=== PATIENT | male | born 1950 | race Caucasian/White ===

== ENCOUNTER 2021-01-15 12:08 | Inpatient (IN) ==
[2021-01-15] MEDS ORDERED: Furosemide 40 MG/4 ML VIAL IVP ONE (12:43)
[2021-01-15 13:34] LABS: Basophils % 0.5 %; Eosinophils # 0.1 K/mcL (0.0-0.6); Eosinophils % 2.3 %; Hematocrit 27.5 % (37.5-50.1); Hemoglobin 9.6 g/dL (12.9-16.9); Immature Granulocytes % 0.2 % (0-4); Lymphocytes % 17.3 %; Mean Corpuscular HGB Conc 34.9 g/dL (31.6-35.5); Mean Corpuscular Hemoglobin 31.4 pg (28.0-33.3); Mean Corpuscular Volume 89.9 fL (83.0-100.0); Monocytes # 0.3 K/mcL (0.0-1.3); Monocytes % 4.7 %; Neutrophils # 4.3 K/mcL (1.6-8.9); Red Blood Count 3.06 M/mcL (4.19-5.50); Red Cell Distribution Width 14.3 % (11.5-14.5); White Blood Count 5.7 K/mcL (4.3-11.1)
[2021-01-15 13:35] LABS: Platelet Count 94 K/mcL (140-400)
[2021-01-15 13:41] LABS: Prothrombin Time 11.8 Seconds (9.4-12.1)
[2021-01-15 13:43] LABS: Activated Partial Thrombo Time 37.3 Seconds (26.0-36.0)
[2021-01-15 14:29] LABS: Albumin 2.8 g/dL (3.5-5.7); Albumin/Globulin Ratio 1.3 (1.1-2.2); Bilirubin,Direct 0.1 mg/dL (0.0-0.2); Bilirubin,Indirect 0.5 mg/dL (0.0-1.0); Bilirubin,Total 0.6 mg/dL (0.3-1.0); Calcium 7.9 mg/dL (8.6-10.3); Globulin 2.1 g/dL (2.4-3.5); Potassium 3.2 mEq/L (3.5-5.1); Total Protein 4.9 g/dL (6.4-8.9); Troponin I 0.03 ng/mL (< 0.04)
[2021-01-15] MEDS ORDERED: Perflutren Lipid Microsphere 1.3 ML in 0.9 % Sodium Chloride 8.7 ML IVP PRN (15:08)
[2021-01-15] MEDS ORDERED: Naloxone 0.4 MG/ML INJ IVP PRN (15:13)
[2021-01-15] MEDS ORDERED: Melatonin 3 MG TABLET PO PRN (15:13)
[2021-01-15] MEDS ORDERED: Ondansetron 4 MG/2 ML VIAL IVP PRN (15:13)
[2021-01-15] MEDS ORDERED: MOM Conc 10 ML UD.LIQ PO PRN (15:13)
[2021-01-15] MEDS ORDERED: *HR* LORazepam 2 MG/ML VIAL IVP ONE (16:52)
[2021-01-15] MEDS ORDERED: Dextrose Gel 15 GM/37.5 ML TUBE PO PRN ×2 (17:15)
[2021-01-15] MEDS ORDERED: *HR* Dextrose 50 % in Water (Vial) 50 ML VIAL IVP PRN (17:15)
[2021-01-15] MEDS ORDERED: D5% in Water 1,000 ML IVC PRN (17:15)
[2021-01-15] MEDS ORDERED: *HR* Labetalol 20 MG/4 ML SYRINGE IVP ONE (20:42)
[2021-01-15] MEDS: Acetaminophen 325 MG TABLET PO PRN (20:48)
[2021-01-15] MEDS: Insulin LISPRO 300 UNITS/3 ML VIAL SUBQ SCH (22:01)
[2021-01-15] MEDS: *HR* Buprenorphine HCl 2 MG SUBLINGUAL TABLET SL SCH (23:23)
[2021-01-15 23:39] LABS: Bilirubin,Urine Negative (Negative); Blood,Urine Moderate (Negative); Clarity,Urine Clear (Clear); Color,Urine Light-Yellow (Yellow); Glucose,Urine (UA) 200 mg/dL (Normal); Hyaline Casts,Urine Few per lpf (None Seen); Ketones,Urine Negative (Negative); Leukocyte Esterase,Urine Negative (Negative); Mucus,Urine Few per lpf (None-Few); Nitrite,Urine Negative (Negative); Protein,Urine >=300 mg/dL (Neg-Trace); Specific Gravity,Urine 1.014 (1.010-1.025); Urobilinogen,Urine Normal (Normal); WBC,Urine 0-3 per hpf (0-3)
[2021-01-16 01:36] LABS: Basophils % 0.6 %; Eosinophils # 0.1 K/mcL (0.0-0.6); Hematocrit 25.9 % (37.5-50.1); Hemoglobin 9.4 g/dL (12.9-16.9); Immature Granulocytes % 0.3 % (0-4); Lymphocytes # 1.2 K/mcL (0.6-4.6); Lymphocytes % 17.9 %; Mean Corpuscular HGB Conc 36.3 g/dL (31.6-35.5); Mean Corpuscular Hemoglobin 31.9 pg (28.0-33.3); Mean Corpuscular Volume 87.8 fL (83.0-100.0); Mean Platelet Volume 10.8 fL (9.4-12.4); Monocytes # 0.3 K/mcL (0.0-1.3); Monocytes % 4.6 %; Platelet Count 103 K/mcL (140-400); Red Blood Count 2.95 M/mcL (4.19-5.50); Red Cell Distribution Width 14.1 % (11.5-14.5); Segmented Neutrophils % 74.6 %; White Blood Count 6.5 K/mcL (4.3-11.1)
[2021-01-16 01:37] LABS: Neutrophils # 4.9 K/mcL (1.6-8.9)
[2021-01-16 01:55] LABS: Albumin 2.6 g/dL (3.5-5.7); Albumin/Globulin Ratio 1.2 (1.1-2.2); Bilirubin,Direct 0.2 mg/dL (0.0-0.2); Bilirubin,Indirect 0.6 mg/dL (0.0-1.0); Bilirubin,Total 0.8 mg/dL (0.3-1.0); Calcium 7.7 mg/dL (8.6-10.3); Globulin 2.2 g/dL (2.4-3.5); Magnesium 1.7 mg/dL (1.6-2.6); Potassium 3.2 mEq/L (3.5-5.1); Total Protein 4.8 g/dL (6.4-8.9)
[2021-01-16] MEDS: Insulin LISPRO 300 UNITS/3 ML VIAL SUBQ SCH ×4 (08:35→20:47)
[2021-01-16] MEDS: *HR* Buprenorphine HCl 2 MG SUBLINGUAL TABLET SL SCH (09:38)
[2021-01-16] MEDS ORDERED: amLODIPine 5 MG TABLET PO SCH (11:30)
[2021-01-16 13:26] LABS: Glucose,Pleural Fluid 189 mg/dL (No Ref Range); LDH,Pleural Fluid 65 Units/L (No Ref Range); Total Protein,Pleural Fluid < 2.0 g/dL
[2021-01-16 13:35] LABS: RBC,Pleural Fluid 52000 RBC/mcL
[2021-01-16 13:52] LABS: Appearance of Pleural Fl Bloody (Clear)
[2021-01-16 14:07] LABS: Basophils,Pleural Fluid 0 %; Monocytes,Pleural Fluid 0 %
[2021-01-16] MEDS ORDERED: amLODIPine 5 MG TABLET PO ONE (14:44)
[2021-01-16] MEDS ORDERED: *HR* OxyCODONE Immed Rel 5 MG TABLET PO ONE (14:50)
[2021-01-16] MEDS: Furosemide 20 MG/2 ML VIAL IVP SCH (15:44)
[2021-01-16 18:19] LABS: Bilirubin,Urine Negative (Negative); Blood,Urine Moderate (Negative); Clarity,Urine Clear (Clear); Color,Urine Light-Yellow (Yellow); Glucose,Urine (UA) 70 mg/dL (Normal); Granular Casts,Urine Few per lpf (None Seen); Hyaline Casts,Urine Few per lpf (None Seen); Ketones,Urine Negative (Negative); Leukocyte Esterase,Urine Negative (Negative); Mucus,Urine Few per lpf (None-Few); Nitrite,Urine Negative (Negative); PH,Urine 6.5 pH Units (5.0-8.0); Protein,Urine >=300 mg/dL (Neg-Trace); RBC,Urine 0-3 per hpf (0-3); Specific Gravity,Urine 1.013 (1.010-1.025); Urobilinogen,Urine Normal (Normal); WBC,Urine 0-3 per hpf (0-3)
[2021-01-16 18:36] LABS: Creatinine,Urine 34 mg/dL; Protein/Creatinine Ratio,Urine 4.18 mg/mg (0.00-0.20); Sodium, Urine < 10.0 mEq/L
[2021-01-16 20:37] LABS: Hemoglobin 8.8 g/dL (12.9-16.9); Mean Corpuscular HGB Conc 35.2 g/dL (31.6-35.5); Mean Corpuscular Hemoglobin 31.3 pg (28.0-33.3); Mean Platelet Volume 10.1 fL (9.4-12.4); Platelet Count 111 K/mcL (140-400); Red Blood Count 2.81 M/mcL (4.19-5.50); Red Cell Distribution Width 14.3 % (11.5-14.5); White Blood Count 7.1 K/mcL (4.3-11.1)
[2021-01-17 01:47] LABS: Basophils % 0.4 %; Eosinophils # 0.2 K/mcL (0.0-0.6); Eosinophils % 2.9 %; Hematocrit 23.9 % (37.5-50.1); Hemoglobin 8.3 g/dL (12.9-16.9); Immature Granulocytes % 0.3 % (0-4); Lymphocytes # 1.4 K/mcL (0.6-4.6); Lymphocytes % 19.9 %; Mean Corpuscular HGB Conc 34.7 g/dL (31.6-35.5); Mean Corpuscular Hemoglobin 30.7 pg (28.0-33.3); Mean Corpuscular Volume 88.5 fL (83.0-100.0); Mean Platelet Volume 11.3 fL (9.4-12.4); Monocytes # 0.4 K/mcL (0.0-1.3); Monocytes % 5.4 %; Neutrophils # 4.8 K/mcL (1.6-8.9); Platelet Count 114 K/mcL (140-400); Red Cell Distribution Width 14.2 % (11.5-14.5); Segmented Neutrophils % 71.1 %; White Blood Count 6.8 K/mcL (4.3-11.1)
[2021-01-17 02:11] LABS: Complement C3 97 mg/dL (87-200)
[2021-01-17 02:14] LABS: Calcium 7.6 mg/dL (8.6-10.3); Magnesium 1.7 mg/dL (1.6-2.6); Potassium 3.4 mEq/L (3.5-5.1); Uric Acid 6.2 mg/dL (2.3-7.6)
[2021-01-17 02:20] LABS: Thyroid Stimulating Hormone 2.69 mcIU/mL (0.340-5.600)
[2021-01-17 03:04] LABS: Hepatitis B Surface Antigen Nonreactive (Nonreactive)
[2021-01-17 03:33] LABS: Hepatitis A Antibody IgM Nonreactive (Nonreactive); Hepatitis B Core IgM Nonreactive (Nonreactive)
[2021-01-17 05:14] LABS: Hepatitis C Virus Antibody Reactive (Nonreactive)
[2021-01-17] MEDS: Acetaminophen 325 MG TABLET PO PRN (06:34)
[2021-01-17] MEDS: Furosemide 20 MG/2 ML VIAL IVP SCH (08:05)
[2021-01-17] MEDS: amLODIPine 5 MG TABLET PO SCH (08:06)
[2021-01-17] MEDS: *HR* Buprenorphine HCl 2 MG SUBLINGUAL TABLET SL SCH (08:06)
[2021-01-17] MEDS: Insulin LISPRO 300 UNITS/3 ML VIAL SUBQ SCH ×4 (08:10→22:46)
[2021-01-17] MEDS ORDERED: carvediloL 6.25 MG TABLET PO SCH (09:00)
[2021-01-17] MEDS ORDERED: aMILoride 5 MG TABLET PO SCH (16:30)
[2021-01-17] MEDS: aMILoride 5 MG TABLET PO SCH ×2 (17:21→20:17)
[2021-01-17] MEDS ORDERED: DiphenhydraMINE CREAM 28.4 GM TUBE TP PRN (20:33)
[2021-01-18 01:22] LABS: Basophils % 0.3 %; Eosinophils # 0.2 K/mcL (0.0-0.6); Eosinophils % 2.6 %; Hematocrit 23.1 % (37.5-50.1); Hemoglobin 8.1 g/dL (12.9-16.9); Immature Granulocytes % 0.3 % (0-4); Lymphocytes # 1.4 K/mcL (0.6-4.6); Mean Corpuscular HGB Conc 35.1 g/dL (31.6-35.5); Mean Corpuscular Hemoglobin 30.8 pg (28.0-33.3); Mean Corpuscular Volume 87.8 fL (83.0-100.0); Mean Platelet Volume 10.3 fL (9.4-12.4); Monocytes # 0.4 K/mcL (0.0-1.3); Monocytes % 5.7 %; Neutrophils # 4.5 K/mcL (1.6-8.9); Platelet Count 114 K/mcL (140-400); Red Blood Count 2.63 M/mcL (4.19-5.50); Red Cell Distribution Width 13.9 % (11.5-14.5); Segmented Neutrophils % 69.1 %; White Blood Count 6.5 K/mcL (4.3-11.1)
[2021-01-18 01:41] LABS: Calcium 7.4 mg/dL (8.6-10.3); Potassium 3.4 mEq/L (3.5-5.1)
[2021-01-18] MEDS: aMILoride 5 MG TABLET PO SCH ×2 (07:31→20:59)
[2021-01-18] MEDS: amLODIPine 5 MG TABLET PO SCH (07:32)
[2021-01-18] MEDS: Insulin LISPRO 300 UNITS/3 ML VIAL SUBQ SCH ×4 (07:32→21:00)
[2021-01-18] MEDS ORDERED: *HR* Buprenorphine HCl 2 MG SUBLINGUAL TABLET SL SCH (09:00)
[2021-01-18] MEDS ORDERED: niCARdipine 20 MG/200 ML MLS IVC SCH (14:15)
[2021-01-18] MEDS: niCARdipine 20 MG/200 ML MLS IVC SCH ×2 (19:24→23:18)
[2021-01-18] MEDS ORDERED: Insulin DETEMIR 100 UNIT/ML X5UNITS SUBQ SCH (21:00)
[2021-01-19 01:10] LABS: Lambda Qnt Free Light Chains 28.15 mg/L (5.71-26.30)
[2021-01-19 02:40] LABS: Basophils % 0.5 %; Eosinophils # 0.2 K/mcL (0.0-0.6); Eosinophils % 3.3 %; Hematocrit 26.4 % (37.5-50.1); Hemoglobin 9.1 g/dL (12.9-16.9); Immature Granulocytes % 0.3 % (0-4); Lymphocytes # 1.5 K/mcL (0.6-4.6); Lymphocytes % 22.3 %; Mean Corpuscular HGB Conc 34.5 g/dL (31.6-35.5); Mean Corpuscular Hemoglobin 30.6 pg (28.0-33.3); Mean Corpuscular Volume 88.9 fL (83.0-100.0); Mean Platelet Volume 10.3 fL (9.4-12.4); Monocytes # 0.4 K/mcL (0.0-1.3); Monocytes % 5.7 %; Neutrophils # 4.5 K/mcL (1.6-8.9); Platelet Count 117 K/mcL (140-400); Red Blood Count 2.97 M/mcL (4.19-5.50); Red Cell Distribution Width 13.6 % (11.5-14.5); Segmented Neutrophils % 67.9 %; White Blood Count 6.7 K/mcL (4.3-11.1)
[2021-01-19] MEDS: niCARdipine 20 MG/200 ML MLS IVC SCH ×6 (02:50→23:20)
[2021-01-19 02:59] LABS: Calcium 7.7 mg/dL (8.6-10.3); Potassium 3.6 mEq/L (3.5-5.1)
[2021-01-19 06:55] LABS: Kappa Qnt Free Light Chains 54.59 mg/L (3.30-19.40)
[2021-01-19 07:05] LABS: ANA IgG by ELISA NONE DETECTED (None Detected)
[2021-01-19] MEDS: aMILoride 5 MG TABLET PO SCH (08:23)
[2021-01-19] MEDS: Insulin LISPRO 300 UNITS/3 ML VIAL SUBQ SCH ×4 (08:26→20:03)
[2021-01-19 10:05] LABS: Serine Protease-3 Antibody 0 AU/mL (0-19)
[2021-01-19] MEDS: NIFEdipine XL (24 HR) 30 MG TAB.ER.24 PO SCH (11:01)
[2021-01-19] MEDS: Insulin DETEMIR 100 UNIT/ML X5UNITS SUBQ SCH (12:46)
[2021-01-19] MEDS ORDERED: *HR* LORazepam 2 MG/ML VIAL IVP ONE (21:34)
[2021-01-19] MEDS ORDERED: QUEtiapine Fumarate 25 MG TABLET PO ONE (21:34)
[2021-01-20 02:09] LABS: Hematocrit 23.5 % (37.5-50.1); Hemoglobin 8.4 g/dL (12.9-16.9); Mean Corpuscular HGB Conc 35.7 g/dL (31.6-35.5); Mean Corpuscular Hemoglobin 31.7 pg (28.0-33.3); Mean Corpuscular Volume 88.7 fL (83.0-100.0); Mean Platelet Volume 10.5 fL (9.4-12.4); Platelet Count 118 K/mcL (140-400); Red Blood Count 2.65 M/mcL (4.19-5.50); Red Cell Distribution Width 13.8 % (11.5-14.5); White Blood Count 6.2 K/mcL (4.3-11.1)
[2021-01-20 02:29] LABS: Calcium 7.7 mg/dL (8.6-10.3); Potassium 3.7 mEq/L (3.5-5.1)
[2021-01-20] MEDS: niCARdipine 20 MG/200 ML MLS IVC SCH ×3 (04:28→10:24)
[2021-01-20] MEDS: NIFEdipine XL (24 HR) 30 MG TAB.ER.24 PO SCH (07:17)
[2021-01-20] MEDS: Insulin LISPRO 300 UNITS/3 ML VIAL SUBQ SCH ×4 (07:30→20:28)
[2021-01-20] MEDS: Insulin DETEMIR 100 UNIT/ML X5UNITS SUBQ SCH (07:30)
[2021-01-20 12:06] LABS: Immunoglobulin A 113 mg/dL (68-408); Immunoglobulin G 443 mg/dL (768-1632); Immunoglobulin M 206 mg/dL (35-263)
[2021-01-20 14:46] LABS: Beta Globulin (PEP) 0.51 g/dL (0.48-1.10)
[2021-01-21 00:57] LABS: Hemoglobin 9.3 g/dL (12.9-16.9); Mean Corpuscular HGB Conc 35.8 g/dL (31.6-35.5); Mean Corpuscular Hemoglobin 31.8 pg (28.0-33.3); Mean Platelet Volume 10.8 fL (9.4-12.4); Platelet Count 138 K/mcL (140-400); Red Blood Count 2.92 M/mcL (4.19-5.50); White Blood Count 8.2 K/mcL (4.3-11.1)
[2021-01-21 01:17] LABS: Potassium 3.9 mEq/L (3.5-5.1)
[2021-01-21] MEDS: Insulin LISPRO 300 UNITS/3 ML VIAL SUBQ SCH ×4 (08:00→21:10)
[2021-01-21] MEDS: Insulin DETEMIR 100 UNIT/ML X5UNITS SUBQ SCH (08:05)
[2021-01-21] MEDS: NIFEdipine XL (24 HR) 60 MG TAB.ER.24 PO SCH (08:06)
[2021-01-21] MEDS: carvediloL 6.25 MG TABLET PO SCH ×2 (08:06→16:46)
[2021-01-21 09:56] LABS: IFE Reflexed IFE Done
[2021-01-21] MEDS ORDERED: 0.9 % Sodium Chloride 1,000 ML IVC SCH (14:45)
[2021-01-21] MEDS: Acetaminophen 325 MG TABLET PO PRN (23:57)
[2021-01-22 02:15] LABS: Hematocrit 28.2 % (37.5-50.1); Hemoglobin 9.7 g/dL (12.9-16.9); Mean Corpuscular HGB Conc 34.4 g/dL (31.6-35.5); Mean Corpuscular Hemoglobin 31.4 pg (28.0-33.3); Mean Corpuscular Volume 91.3 fL (83.0-100.0); Mean Platelet Volume 10.9 fL (9.4-12.4); Platelet Count 148 K/mcL (140-400); Red Blood Count 3.09 M/mcL (4.19-5.50); Red Cell Distribution Width 13.7 % (11.5-14.5)
[2021-01-22 02:35] LABS: Calcium 7.9 mg/dL (8.6-10.3); Potassium 3.8 mEq/L (3.5-5.1)
[2021-01-22 08:13] VITALS: BP 205/107; PULSE 98; TEMP 98; O2SAT 100
[2021-01-22] MEDS: carvediloL 6.25 MG TABLET PO SCH (08:14)
[2021-01-22] MEDS: NIFEdipine XL (24 HR) 60 MG TAB.ER.24 PO SCH (08:14)
[2021-01-22] MEDS: Insulin DETEMIR 100 UNIT/ML X5UNITS SUBQ SCH (08:14)
[2021-01-22] MEDS: Insulin LISPRO 300 UNITS/3 ML VIAL SUBQ SCH (08:14)
[2021-01-22] MEDS ORDERED: 0.9 % Sodium Chloride 1,000 ML IVC SCH (09:15)
[2021-01-22 10:13] LABS: HCV Quant Interpretation DETECTED (Not Detected); HCV Quant Log 5.59 log IU/mL
[2021-01-25 08:34] LABS: HCV Genotype by Sequencing 1A OR 1B
[2021-01-26 05:46] LABS: Urine Collection Volume RANDOM mL
== END 2021-01-22 13:16 | disposition left against medical advice (07) | DRG 280 ==
LOC: EMEROOARM 12:08 → 2NENU 12:08 → SUATTDRO 15:03 → 2NENU 16:29 → 2NNU 01-16 17:47 → SUATTDRO 01-18 13:01 → 2ANU 01-20 08:29
PROVIDERS: ADMIT Internal Medicine; ATTEND Internal Medicine

== ENCOUNTER 2021-03-22 13:12 | Inpatient (IN) ==
[~2021-03-22 13:12] MED LIST: cefTRIAXone 1,000 MG in Water for inj. (sterile) 10 ML IVP SCH
[2021-03-22 14:11] LABS: Basophils % 0.3 %; Eosinophils # 0.1 K/mcL (0.0-0.6); Hematocrit 31.8 % (37.5-50.1); Immature Granulocytes % 0.7 % (0-4); Lymphocytes # 1.4 K/mcL (0.6-4.6); Lymphocytes % 13.2 %; Mean Corpuscular HGB Conc 34.6 g/dL (31.6-35.5); Mean Corpuscular Hemoglobin 31.5 pg (28.0-33.3); Mean Corpuscular Volume 91.1 fL (83.0-100.0); Mean Platelet Volume 11.3 fL (9.4-12.4); Monocytes # 0.4 K/mcL (0.0-1.3); Monocytes % 3.4 %; Neutrophils # 8.5 K/mcL (1.6-8.9); Platelet Count 130 K/mcL (140-400); Red Blood Count 3.49 M/mcL (4.19-5.50); Red Cell Distribution Width 13.5 % (11.5-14.5); Segmented Neutrophils % 81.4 %; White Blood Count 10.4 K/mcL (4.3-11.1)
[2021-03-22 14:36] LABS: Albumin 3.6 g/dL (3.5-5.7); Albumin/Globulin Ratio 1.3 (1.1-2.2); Bilirubin,Direct 0.2 mg/dL (0.0-0.2); Bilirubin,Indirect 0.5 mg/dL (0.0-1.0); Bilirubin,Total 0.7 mg/dL (0.3-1.0); Calcium 8.8 mg/dL (8.6-10.3); Globulin 2.7 g/dL (2.4-3.5); Potassium 3.9 mEq/L (3.5-5.1); Total Protein 6.3 g/dL (6.4-8.9)
[2021-03-22] MEDS ORDERED: 0.9 % Sodium Chloride 1,000 ML IV ONE (14:48)
[2021-03-22] MEDS ORDERED: Isovue-370 500 ML BOTTLE IVP ONE (16:14)
[2021-03-22 17:00] LABS: Bilirubin,Urine Negative (Negative); Blood,Urine Moderate (Negative); Clarity,Urine Clear (Clear); Color,Urine Light-Yellow (Yellow); Glucose,Urine (UA) 500 mg/dL (Normal); Hyaline Casts,Urine Few per lpf (None Seen); Ketones,Urine Negative (Negative); Leukocyte Esterase,Urine Negative (Negative); Nitrite,Urine Negative (Negative); PH,Urine 6.5 pH Units (5.0-8.0); Protein,Urine >=600 mg/dL (Neg-Trace); RBC,Urine 0-3 per hpf (0-3); Specific Gravity,Urine 1.017 (1.010-1.025); Urobilinogen,Urine Normal (Normal); WBC,Urine 0-3 per hpf (0-3)
[2021-03-22] MEDS ORDERED: Pantoprazole 40 MG VIAL IVP ONE (17:50)
[2021-03-22] MEDS ORDERED: cefTRIAXone 1,000 MG in 0.9 % Sodium Chloride Mini Bag 100 ML IVPB ONE (17:52)
[2021-03-22] MEDS ORDERED: carvediloL 25 MG TABLET PO ONE (18:32)
[2021-03-22] MEDS ORDERED: Naloxone 0.4 MG/ML INJ IVP PRN (19:23)
[2021-03-22] MEDS ORDERED: Acetaminophen 325 MG TABLET PO PRN (19:35)
[2021-03-22] MEDS ORDERED: *HR* HYDROcodone/Acet 5/325 mg TABLET PO PRN (19:35)
[2021-03-22] MEDS ORDERED: Melatonin 3 MG TABLET PO PRN (19:35)
[2021-03-22] MEDS ORDERED: Dextrose Gel 15 GM/37.5 ML TUBE PO PRN ×2 (19:44)
[2021-03-22] MEDS ORDERED: D5% in Water 1,000 ML IVC PRN (19:44)
[2021-03-22] MEDS ORDERED: *HR* Dextrose 50 % in Water (Syg) 50 ML SYRINGE IVP PRN (19:44)
[2021-03-22] MEDS ORDERED: Albumin 25% 25gram/100mL 25 GM/100 ML IV.SOLN IVC SCH (20:00)
[2021-03-22] MEDS ORDERED: Pantoprazole 40 MG VIAL ONE ×2 (22:03→23:37)
[2021-03-22] MEDS: Insulin DETEMIR 100 UNIT/ML X5UNITS SUBQ SCH (22:33)
[2021-03-22] MEDS: *HR* Buprenorphine HCl 2 MG SUBLINGUAL TABLET SL SCH (23:17)
[2021-03-22] MEDS: Pantoprazole 40 MG in 0.9 % Sodium Chloride Mini Bag 100 ML IVC SCH (23:46)
[2021-03-23] MEDS: niCARdipine 20 MG/200 ML MLS IVC SCH ×5 (00:08→10:46)
[2021-03-23] MEDS: Octreotide 400 MCG in 0.9 % Sodium Chloride 100 ML IVC SCH ×3 (00:14→20:41)
[2021-03-23 02:19] LABS: Influenza A PCR Negative (Negative); Influenza B PCR Negative (Negative); Resp. Syncytial Virus PCR Negative (Negative)
[2021-03-23 02:21] LABS: SARS-CoV-2 by PCR (In House) Negative (Negative)
[2021-03-23] MEDS: Pantoprazole 40 MG in 0.9 % Sodium Chloride Mini Bag 100 ML IVC SCH ×4 (03:45→23:17)
[2021-03-23] MEDS: Insulin LISPRO 300 UNITS/3 ML VIAL SUBQ SCH ×4 (03:45→18:11)
[2021-03-23 04:32] LABS: Basophils % 0.5 %; Eosinophils # 0.1 K/mcL (0.0-0.6); Eosinophils % 1.9 %; Hematocrit 26.5 % (37.5-50.1); Hemoglobin 8.8 g/dL (12.9-16.9); Immature Granulocytes % 0.3 % (0-4); Immature Platelets 2.8 % (1.1-6.1); Lymphocytes # 1.8 K/mcL (0.6-4.6); Lymphocytes % 23.5 %; Mean Corpuscular HGB Conc 33.2 g/dL (31.6-35.5); Mean Corpuscular Hemoglobin 30.4 pg (28.0-33.3); Mean Corpuscular Volume 91.7 fL (83.0-100.0); Mean Platelet Volume 11.2 fL (9.4-12.4); Monocytes # 0.3 K/mcL (0.0-1.3); Monocytes % 4.5 %; Red Blood Count 2.89 M/mcL (4.19-5.50); Red Cell Distribution Width 13.2 % (11.5-14.5); Segmented Neutrophils % 69.3 %; White Blood Count 7.6 K/mcL (4.3-11.1)
[2021-03-23 04:34] LABS: Neutrophils # 5.3 K/mcL (1.6-8.9); Platelet Count 93 K/mcL (140-400)
[2021-03-23 04:43] LABS: INR 1.1; Prothrombin Time 12.4 Seconds (9.4-12.1)
[2021-03-23 04:50] LABS: Albumin 3.3 g/dL (3.5-5.7); Albumin/Globulin Ratio 1.5 (1.1-2.2); Bilirubin,Total 0.7 mg/dL (0.3-1.0); Calcium 8.2 mg/dL (8.6-10.3); Globulin 2.2 g/dL (2.4-3.5); Magnesium 1.7 mg/dL (1.6-2.6); Phosphorous 4.3 mg/dL (2.7-4.5); Potassium 3.7 mEq/L (3.5-5.1); Total Protein 5.5 g/dL (6.4-8.9)
[2021-03-23] MEDS ORDERED: Lidocaine -MPF 2% 5 ML VIAL ONE (09:19)
[2021-03-23] MEDS ORDERED: *HR* Propofol 200 MG/20 ML VIAL IVP ONE (09:20)
[2021-03-23] MEDS: carvediloL 25 MG TABLET PO SCH ×2 (10:44→18:19)
[2021-03-23] MEDS: NIFEdipine XL (24 HR) 30 MG TAB.ER.24 PO SCH (10:44)
[2021-03-23] MEDS ORDERED: cefTRIAXone 1,000 MG in Water for inj. (sterile) 10 ML IVP SCH (20:00)
[2021-03-23] MEDS: Lactobacillus 1 EACH CAP.SPRINK PO SCH (20:43)
[2021-03-23] MEDS: Insulin DETEMIR 100 UNIT/ML X5UNITS SUBQ SCH (20:43)
[2021-03-23] MEDS: *HR* Buprenorphine HCl 2 MG SUBLINGUAL TABLET SL SCH (20:43)
[2021-03-23] MEDS ORDERED: Chlorhexidine Rinse 15 ML MOUTHWASH MM SCH (21:00)
[2021-03-24] MEDS ORDERED: Nicotine 14 MG PATCH.TD24 TD SCH (02:00)
[2021-03-24] MEDS: Insulin LISPRO 300 UNITS/3 ML VIAL SUBQ SCH ×2 (05:39→06:27)
[2021-03-24] MEDS: Pantoprazole 40 MG in 0.9 % Sodium Chloride Mini Bag 100 ML IVC SCH (05:46)
[2021-03-24] MEDS: Octreotide 400 MCG in 0.9 % Sodium Chloride 100 ML IVC SCH ×2 (05:46→05:53)
[2021-03-24 05:49] LABS: Basophils # 0.1 K/mcL (0.0-0.2); Basophils % 0.6 %; Eosinophils # 0.3 K/mcL (0.0-0.6); Eosinophils % 3.8 %; Hematocrit 26.1 % (37.5-50.1); Immature Granulocytes % 0.6 % (0-4); Lymphocytes # 1.9 K/mcL (0.6-4.6); Lymphocytes % 22.7 %; Mean Corpuscular HGB Conc 34.5 g/dL (31.6-35.5); Mean Corpuscular Hemoglobin 31.4 pg (28.0-33.3); Mean Corpuscular Volume 90.9 fL (83.0-100.0); Mean Platelet Volume 11.6 fL (9.4-12.4); Monocytes # 0.4 K/mcL (0.0-1.3); Neutrophils # 5.6 K/mcL (1.6-8.9); Platelet Count 121 K/mcL (140-400); Red Blood Count 2.87 M/mcL (4.19-5.50); Segmented Neutrophils % 67.3 %; White Blood Count 8.3 K/mcL (4.3-11.1)
[2021-03-24 06:20] LABS: Albumin 3.1 g/dL (3.5-5.7); Albumin/Globulin Ratio 1.5 (1.1-2.2); Bilirubin,Total 0.5 mg/dL (0.3-1.0); Calcium 7.9 mg/dL (8.6-10.3); Globulin 2.1 g/dL (2.4-3.5); Magnesium 1.7 mg/dL (1.6-2.6); Phosphorous 4.8 mg/dL (2.7-4.5); Potassium 4.1 mEq/L (3.5-5.1); Total Protein 5.2 g/dL (6.4-8.9)
[2021-03-24 06:33] LABS: Folate 16.5 ng/mL (3.0-16.0)
[2021-03-24 06:51] VITALS: O2SAT 92
[2021-03-24] MEDS: carvediloL 25 MG TABLET PO SCH (08:03)
[2021-03-24] MEDS: Lactobacillus 1 EACH CAP.SPRINK PO SCH (08:03)
[2021-03-24] MEDS: NIFEdipine XL (24 HR) 30 MG TAB.ER.24 PO SCH (08:03)
[2021-03-24 08:34] LABS: Estimated Average Glucose 154 mg/dl
[2021-03-24] MEDS ORDERED: Albumin 25% 25gram/100mL 25 GM/100 ML IV.SOLN IVPB SCH (16:00)
[2021-03-24] MEDS ORDERED: carvediloL 25 MG TABLET PO SCH (17:00)
[2021-03-25 06:44] VITALS: BP 126/52; PULSE 85; TEMP 98.6
[2021-03-25] MEDS ORDERED: NIFEdipine XL (24 HR) 30 MG TAB.ER.24 PO SCH (09:00)
== END 2021-03-24 11:59 | disposition left against medical advice (07) | DRG 432 ==
LOC: 2ANU 13:12 → EMEROOARM 13:12 → SUATTDRO 18:49 → 2NENU 19:33 → SUATTDRO 03-23 14:53
PROVIDERS: ADMIT Family Medicine; ATTEND Pharmacist